=== PATIENT | male | born 2000 | race Caucasian/White ===

== ENCOUNTER 2019-12-15 00:07 | Emergency (ER) | payer MEDICAID ==
[~2019-12-15] VITALS: Ht 160 cm; Wt 61.2 kg
--- NOTE | 2019-12-15 01:00 | NUR ---
PT BIB EMS C/O ETOH. FOUND SLEEPING IN FRONT ON SOMEONES HOUSE SURROUNDED W CANS OF ALCOHOL. PT ABLE TO ANSWER QUESTIONS,RESPIRATIONS EVEN AND UNLABORED ON RA W/ NAD NOTED. PT CONNECTED TO THE REGIONAL PROGRAM MANAGER AND POX
--- NOTE | 2019-12-15 02:15 | NUR ---
PT RESTING COMFORTABLY IN BED. VSS. RESPIRATIONS EVEN AND UNLABORED ON RA W/ NAD NOTED. SITTER AT BEDSIDE FOR SAFETY
--- NOTE | 2019-12-15 04:20 | NUR ---
PT ASLEEP IN BED. VSS. RESPIRATIONS EVEN AND UNLABORED ON RA W/ AND NOTED. SITTER AT BEDSIDE FOR SAFETY
--- NOTE | 2019-12-15 06:14 | NUR ---
PT STATES "I WANNA GO HOME". AWARE. PT ROADTESTED. PT AMBULATORY W STEADY GAIT
[2019-12-15 06:15] VITALS: BP 106/89
--- NOTE | 2019-12-15 06:15 | NUR ---
Patient discharged to home in stable condition. Written and verbal after care instructions given. Patient verbalizes understanding of instruction.pt. ambulatory with a steady gait
== END 2019-12-15 06:16 | disposition home or self-care (01) ==
LOC: ER 00:07
DX: F10.129 Alcohol abuse with intoxication, unspecified (principal); R51.9 Headache, unspecified; Y90.9 Presence of alcohol in blood, level not specified
CPT/HCPCS: 70450-TC